=== PATIENT | female | born 1995 | race Caucasian/White ===

== ENCOUNTER 2018-03-09 16:53 | Emergency (ER) | payer MEDICAID ==
[~2018-03-09] VITALS: Ht 165.1 cm; Wt 61.2 kg
[2018-03-09 17:00] VITALS: BP 115/78
[2018-03-09] MEDS ORDERED: NACL 0.9% 1,000 ML IV ONE (19:54)
[2018-03-09] MEDS ORDERED: MORPHINE SULFATE 4 MG/ML SYR IVP ONE (19:55)
[2018-03-09] MEDS ORDERED: ONDANSETRON 4 MG/2 ML VIAL IVP ONE (19:55)
[2018-03-09 20:18] LABS: BASOPHILS # (AUTO) 0.1 K/uL (0.00-0.22); BASOPHILS % (AUTO) 1.4 % (0.0-2.0); EOSINOPHILS % (AUTO) 0.1 % (0.0-4.0); HEMATOCRIT 43.9 % (36-48); HEMOGLOBIN 14.6 g/dL (12.0-16.0); LYMPHOCYTES # (AUTO) 0.6 K/uL (2.5-16.5); LYMPHOCYTES % (AUTO) 6.8 % (20.5-51.1); MEAN CORPUSCULAR HEMOGLOBIN 31 pg (27-31); MEAN CORPUSCULAR HGB CONC 33 g/dL (33-37); MEAN CORPUSCULAR VOLUME 92.3 fL (80-94); MONOCYTES # (AUTO) 0.4 K/uL (0.8-1.0); MONOCYTES % (AUTO) 4.4 % (1.7-9.3); NEUTROPHILS # (AUTO) 7.8 K/uL (1.8-7.7); NEUTROPHILS % (AUTO) 87.3 % (42.2-75.2); PLATELET COUNT (AUTO) 317 K/uL (140-450); RED BLOOD CELL COUNT(AUTO) 4.76 MIL/uL (4.20-5.40); WHITE BLOOD COUNT (AUTO) 8.9 K/uL (4.8-10.8)
[2018-03-09 20:53] LABS: ANION GAP 13.5 (8-16); CARBON DIOXIDE 24.1 mmol/L (21-32); CREATININE 0.8 mg/dL (0.6-1.3); POTASSIUM 3.6 mmol/L (3.5-5.1)
[2018-03-09 21:01] LABS: ALBUMIN 4.3 g/dL (3.4-5.0); TOTAL BILIRUBIN 1.2 mg/dL (0.0-1.0)
[2018-03-09 21:45] VITALS: BP 112/62
== END 2018-03-09 21:45 | disposition home or self-care (01) ==
LOC: MED 16:53
DX: R11.2 Nausea with vomiting, unspecified (principal); R19.7 Diarrhea, unspecified; R10.84 Generalized abdominal pain; J45.909 Unspecified asthma, uncomplicated
CPT/HCPCS: 36415; 80053; 81025; 83690; 85025; 96361; 96374; 96375; 99284; J2270; J2405; 81002; J7030